=== PATIENT | female | born 1985 | race African-American/Black ===

== ENCOUNTER 2021-05-07 18:12 | Emergency (ER) | payer OTHER, SELFPAY ==
[2021-05-07 18:17] VITALS: BP 128/86; PULSE 102; RESP 12; TEMP 36.2; O2SAT 100
--- NOTE | 2021-05-07 18:31 | ED.FEMALEGU ---
HPI - Female Genitourinary General Chief complaint: Urogenital-Female Stated complaint: UTI Time Seen by Provider: 05/07/21 18:21 History of Present Illness HPI Narrative: 36-year-old female presents emergency room with complaints of dysuria, suprapubic pain, and mild low back pain. Patient denies blood in her urine, or or fever. Patient states symptoms started yesterday. Related Data Allergies Allergy/AdvReac Type Severity Reaction Status Date / Time No Known Allergies Allergy Verified 05/07/21 18:48 Review of Systems Review of Systems: CONSTITUTIONAL: Denies fever, chills, or sweats. EYES: Denies visual changes, redness, or discharge. ENT: Denies rhinorrhea, congestion, sore throat, or otalgia. CARDIOVASCULAR: Denies chest pain, palpitations, or edema. RESPIRATORY: Denies cough or dyspnea. GASTROINTESTINAL: Denies abdominal pain, nausea, vomiting, or diarrhea. GENITOURINARY: Reports dysuria, denies hematuria.. SKIN: Denies rash or itching. MUSCULOSKELETAL: Denies back pain, joint pain, or myalgia. NEUROLOGIC: Denies headache, numbness, dizziness, or weakness. PSYCHIATRIC: Denies anxiety or depression. Exam Narrative: GENERAL: Well-appearing, well-nourished, and in no acute distress. HEAD: Normocephalic, atraumatic. EYES: PERRLA and EOMI. ENT: Nares clear, no rhinorrhea or epistaxis. Mucous membranes moist. NECK: Supple. No adenopathy or masses. No carotid bruits or JVD CHEST: Clear to auscultation. No respiratory distress. No wheezes rales or rhonchi HEART: Regular rate and rhythm. No murmur heard. Normal peripheral pulses. ABDOMEN: Suprapubic tenderness, no CVA tenderness normal active bowel sounds. EXTREMITIES: Normal range of motion. No edema. SKIN: Warm, dry, no rash. NEURO: No focal deficits. Alert and oriented x3. PSYCH: Normal mood and affect. Course Vital Signs Vital signs: Vital Signs Temperature 36.2 C L 05/07/21 18:17 Pulse Rate 102 H 05/07/21 18:17 Respiratory Rate 12 05/07/21 18:17 Blood Pressure 128/86 05/07/21 18:17 Pulse Oximetry 100 05/07/21 18:17 Temperature 36.2 C L 05/07/21 18:17 Pulse Rate 102 H 05/07/21 18:17 Respiratory Rate 12 05/07/21 18:17 Blood Pressure 128/86 05/07/21 18:17 Pulse Oximetry 100 05/07/21 18:17 MDM - Female Genitourinary Lab Data Labs: Lab Results 05/07/21 Range/Units 18:25 Urine Color Yellow (Yellow) Urine Appearance Cloudy H (Clear) Urine pH 7.0 (5.0-9.0) Ur Specific [place] 1.012 (1.001-1.035) Urine Protein 1+ H (Negative) mg/dL Urine Glucose (UA) Negative (Negative) mg/dL Urine Ketones Negative (Negative) mg/dL Ur Blood (Man) 2+ H (Negative) Urine Nitrate Negative (Negative) Urine Bilirubin Negative (Negative) Urine Urobilinogen Negative (<2.0) mg/dL Leukocyte Esterase Rfl 2+ H (Negative) RENE/UL Urine RBC 51-75 H (0-2) /hpf Urine WBC 51-75 H /hpf Ur Squamous Epith Cells Few (Few) /hpf Urine Yeast (Budding) Present H (None) /hpf UCG Bedside Result Negative Reference Range: Negative Urine Characteristics Cloudy Discharge Plan Discharge Clinical Impression: Urinary tract infection Patient Disposition: Home, Self-Care Condition: Stable Instructions: Antibiotic Form, Urinary Tract Infection in Women (ED) Prescriptions: New nitrofurantoin monohyd/m-cryst [Macrobid] 100 mg capsule 100 mg PO Q12H 7 Days Qty: 14 RF: 0 fluconazole 150 mg tablet 150 mg PO WEEKLY Qty: 2 RF: 0 Follow-up/Referrals: Rubio,Richa Leon [employer] [Primary Care Provider] - Time of Disposition: 18:50
[2021-05-07 18:45] LABS: Add Urine Microscopic? YES; Appearance Urine Cloudy (Clear); Bilirubin Urine Negative (Negative); Blood Urine 2+ (Negative); Budding Yeast Urine Present /hpf; Color Urine Yellow (Yellow); Glucose Urine UA Negative (Negative); Ketones Urine Negative (Negative); Leukocyte Esterase Ur 2+ LEU/UL (Negative); Nitrate Urine Negative (Negative); Protein Urine 1+ mg/dL (Negative); RBC Urine 51-75 /hpf (0-2); Specific Grav Ur 1.012 (1.001-1.035); Squamous Epithelial Cell Urine Few /hpf (Few); Urobilinogen Urine Negative mg/dL (<2.0); WBC Urine 51-75 /hpf
== END 2021-05-07 18:57 | disposition home or self-care (01) ==
PROVIDERS: Emergency Medicine; Emergency Provider Nurse Practitioner Family; PCP Nurse Practitioner Family
DX: N39.0 Urinary tract infection, site not specified (principal)
CPT/HCPCS: 81001; 81025; 87077; 87086; 87088; 87186; 99283

== ENCOUNTER 2022-06-01 13:42 | Observation (INO) | payer BC, SELFPAY ==
--- NOTE | ~2022-06-01 | US_ITS ---
US pelvic complete DATE: 06/01/2022 18:18 INDICATION: Suprapubic abdominal pain. Abnormal vaginal bleeding. TECHNIQUE: Real-time and color flow imaging of the pelvis COMPARISON: 06/01/2022 CT abdomen pelvis is not available at this time FINDINGS: The uterus measures 10.3 cm height, 4.5 cm anteroposterior and 5.1 cm transverse dimension. The central endometrial echo complex measures up to 6.4 mm. There is an approximately 3.1 x 3 x 2.8 cm posterior heterogeneous uterine fibroid. Right ovary measures 7.5 x 4.5 x 4.3 cm, with vascular flow. There is a complex right ovarian mass me asuring up to 3.2 x 3.8 x 5.3 cm Left ovary measures 4.8 x 2.5 x 2.6 cm, with normal vascular flow. T here is a left ovarian cyst measuring 1.5 x 2 x 1.5 cm. Small free fluid collection in the posterior cul-de-sac. IMPRESSION: Up to 3.2 x 3.8 by 5.3 cm complex right ovarian lesion Approximately 3 cm posterior uterine fibroid Reviewed, dictated and finalized at [facility]. Reviewed, dictated and finalized at [facility].
--- NOTE | ~2022-06-01 | CT_ITS ---
EXAMINATION: CT abdomen pelvis w con DATE: 06/01/2022 18:49 INDICATION: Right lower quadrant and suprapubic abdominal pain TECHNIQUE: Computed tomography (CT) of the abdomen and pelvis was performed with 100 CC Omnipaque 350 intravenous contrast. Automated exposure control and iterative reconstruction technique were employe d. Exam dose: 298.58 mGy-cm total exam DLP. COMPARISON: None. FINDINGS: The lung bases are clear. Normal heart size. No pericardial or pleural effusion. The liver, gallbladder, bile ducts, spleen, pancreas, pancreatic duct, and adrenal glands and kidneys are unremarkable with the exception of a 7 mm left renal cyst. Normal caliber of the abdominal aorta. No intraperitoneal or retroperitoneal or pelvic mass lesion or adenopathy or ascites. Normal appendix. No bowel obstruction, bowel wall thickening, pneumatosis or intraperitoneal free air . Prominent bilateral ovarian cysts. Mild amount of high attenuation free fluid in the cul-de-sac, possibly blood. Included skeletal structures are unremarkable. IMPRESSION: Normal appendix Prominent bilateral ovarian cysts, mild free fluid, likely blood, in the posterior cul-de-sac Reviewed, dictated and finalized at [facility]. Reviewed, dictated and finalized at [facility]. IMPRESSION: Normal appendix Prominent bilateral ovarian cysts, mild free fluid, likely blood, in the r d internship ior cul-de-sac
[2022-06-01 14:12] VITALS: BP 159/80; PULSE 89; RESP 18; TEMP 36.8; O2SAT 100
[2022-06-01 17:15] VITALS: BP 133/79; PULSE 78; RESP 16; O2SAT 100
--- NOTE | 2022-06-01 17:19 | ED.GENADULT ---
HPI - General Adult General Chief complaint: Unspecified <Katja Wagner PA-C - Last Filed: 06/02/22 02:30> Stated complaint: R. sided abd pain, <Katja Wagner PA-C - Last Filed: 06/02/22 02:30> Time Seen by Provider: 06/01/22 17:03 <Katja Wagner PA-C - Last Filed: 06/02/22 02:30> History of Present Illness HPI narrative: 37-year-old female LMP 05/17 reports for evaluation of suprapubic and right lower quadrant pain for 1 week, worsening today. Patient states for the past week she has had intermittent suprapubic and right lower quadrant pain that radiates to her right low back. Starting today, the pain became constant and worsened. She reports the last day of her LMP was 05/22, then today she began having a bright red light vaginal bleeding, using 1 tampon today. She denies history of spotting between periods. Patient reports she is attempting to conceive, denies concern for STDs. Patient states she had a sensation of urinary urgency. Last bowel movement 4 days ago and normal. Reports nausea today. Denies vomiting, chest pain, shortness of breath, melena, diarrhea, vaginal discharge, cough, congestion, fever, body aches, chills, dysuria, hematuria. <Katja Wagner PA-C - Last Filed: 06/02/22 02:30> Related Data Allergies/adverse reactions: Allergies Allergy/AdvReac Type Severity Reaction Status Date / Time No Known Allergies Allergy Verified 06/05/22 14:07 <Katja Wanger PA-C - Last Filed: 06/02/22 02:30> Review of Systems Review of Systems: CONSTITUTIONAL: Denies fever, chills EYES: Denies visual changes, redness, or discharge. ENT: Denies rhinorrhea, congestion, sore throat, or otalgia. CARDIOVASCULAR: Denies chest pain, palpitations, or edema. RESPIRATORY: Denies cough or dyspnea. GASTROINTESTINAL: See HPI GENITOURINARY: Denies dysuria or hematuria. SKIN: Denies rash or itching. MUSCULOSKELETAL: Denies joint pain, or myalgia. NEUROLOGIC: Denies headache, numbness, dizziness, or weakness. PSYCHIATRIC: Denies anxiety or depression. <Kataj Wagner PA-C - Last Filed: 06/02/22 02:30> [facility] Surgical History Surgical History: Surgical History History of delivery <Katja Wagner PA-C - Last Filed: 06/02/22 02:30> Family History Family History: Family History Mother Hypertension Diabetes mellitus <MARIELA Mejia Last Filed: 06/02/22 02:30> Social History Social History: Social History Smoking status: Never smoker Alcohol intake: never Substance use: never Living arrangements: with family Occupation/Education: student Gender identity (if verbalized by the patient): Female Sexual Orientation (if Verbalized by the Patient): Straight or Heterosexual <Katja Wagner PA-C - Last Filed: 06/02/22 02:30> Exam Narrative: GENERAL: Well-appearing, well-nourished, and in no acute distress. Patient resting comfortably in exam bed. She is pleasant and conversational, becomes tearful during history. HEAD: Normocephalic, atraumatic. EYES: PERRLA and EOMI. ENT: Nares clear, no rhinorrhea or epistaxis. Mucous membranes moist. Oropharynx without tonsillar hypertrophy exudate or other lesions. NECK: Supple. No adenopathy or masses. CHEST: Clear to auscultation. No respiratory distress. No wheezes rales or rhonchi HEART: Regular rate and rhythm. No murmur heard. Normal peripheral pulses. ABDOMEN: Normal active bowel sounds. Nondistended. Generalized abdominal tenderness, more so over suprapubic region and RLQ. Negative Muhammad's, Rovsings, psoas and obturator. Negative heel tap. No CVA tenderness bilaterally. : No lesions or rashes to external genitalia, vagina or cervix. Scant amount of blood in vaginal vault. No CMT. No masses or tenderness appreciated to adnexa
[2022-06-01] MEDS: SODIUM CHLORIDE 0.9% IV 1,000 ML 999 ML IV CONT (17:34)
[2022-06-01] MEDS: ONDANSETRON INJ 4 MG/2 ML VIAL IV PUSH (17:34)
[2022-06-01 17:53] LABS: Basophils Percent Auto 0.5 % (0.2-1.2); Eosinophils Absolute Auto 0.1 K/mm3 (0-0.3); Eosinophils Percent Auto 0.8 % (0-4.4); Hematocrit 36.9 % (37.0-47.0); Hemoglobin 11.7 g/dL (12.0-15.0); Immature Granulocyte Absolute 0.02 K/mm3 (0.00-0.031); Immature Granulocyte Percent A 0.3 % (0-0.5); Immature Platelet Fraction Pct 21.5 % (0.9-11.2); Lymphocytes Absolute Auto 1.21 K/mm3 (0.9-3.2); Lymphocytes Percent Auto 19.5 % (18.3-44.2); Mean Corpuscular HGB Conc 31.7 g/dl (32-36); Mean Corpuscular Hemoglobin 28.4 pg (26-34); Mean Corpuscular Volume 89.6 fl (80-100); Mean Platelet Volume 13.8 fl (7.4-10.4); Monocytes Absolute Auto 0.6 K/mm3 (0.1-0.6); Neutrophils Absolute Auto 4.3 K/mm3 (1.3-6.7); Neutrophils Percent Auto 68.9 % (45.5-73.1); Platelet Count Result 250 k/mm3 (150-375); Red Blood Count 4.12 M/mm3 (4.2-5.4); Red Cell Distribution Width 12.7 % (11.5-14.5); White Blood Count 6.2 K/mm3 (4.5-10.0)
[2022-06-01 17:59] LABS: Lactic Acid Reflex 1.1 mmol/L (0.7-2.0)
[2022-06-01 18:02] LABS: Alanine Aminotransferase 14 U/L (6-35); Albumin Level 4.7 g/dL (3.5-5.1); Alkaline Phosphatase 44 U/L (38-126); Anion Gap 8 mmol/L (8-16); Aspartate Amino Transferase 21 U/L (14-36); Bilirubin,Total 0.5 mg/dL (0.2-1.3); Blood Urea Nitrogen 8 mg/dL (7-17); Calcium 9.4 mg/dL (8.4-10.2); Carbon Dioxide 26 mmol/L (22-30); Chloride 105 mmol/L (98-107); Estimated CRCL calculation 86 ml/min; Estimated Glomerular Filt Rate > 60; Glucose 90 mg/dL (65-110); Lipase 137 U/L (23-300); Potassium 4.6 mmol/L (3.4-5.0); Sodium 139 mmol/L (137-145)
[2022-06-01 18:05] LABS: Ovalocytes 1+ (NORMAL); Platelet Estimate Adequate (Adequate)
[2022-06-01 18:06] LABS: Schistocytes None Seen (NORMAL)
[2022-06-01 18:59] LABS: Appearance Urine Clear (Clear); Bacteria Urine None Seen /hpf; Bilirubin Urine Negative (Negative); Blood Urine 2+ (Negative); Color Urine Yellow (Yellow); Glucose Urine UA Negative (Negative); Ketones Urine Negative (Negative); Leukocyte Esterase Ur Negative LEU/UL (Negative); Nitrate Urine Negative (Negative); Non Pathogenic Casts 0-2; Protein Urine Negative (Negative); RBC Urine 0-2 /hpf (0-2); Specific Grav Ur 1.005 (1.001-1.035); Squamous Epithelial Cell Urine None seen /hpf (Few); Urobilinogen Urine 0.2 mg/dL (<2.0); WBC Urine 0-5 /hpf
[2022-06-01 19:07] LABS: Add Urine Microscopic? YES
[2022-06-01 20:36] LABS: Beta HCG Quantitative 157.66 mIU/ML
[2022-06-01] MEDS: SODIUM CHLORIDE 0.9% IV 1,000 ML 125 ML IV CONT (21:23)
[2022-06-01 22:52] VITALS: BP 126/65; PULSE 74
[2022-06-01 23:09] VITALS: TEMP 37.2
--- NOTE | 2022-06-02 05:31 | OBADM ---
This patient, Zenobia Gomez, admitted to the OB room OB Post 116 for observation. Patient/family oriented to hospital policies and general routines including ID bracelet, bed and alarms, visiting hours, pain management, procedures, bathroom and other care routines, personal items, smoking policy, room service/diet, and visiting hours. Patient/Family are encouraged to report perceived risks to care and to ask questions if they do not understand what they are told or what they should do.
[2022-06-02 05:52] LABS: Beta HCG Quantitative 119.75 mIU/ML
--- NOTE | 2022-06-02 05:55 | PC.NURSE ---
Dr Eden called via marketing copywriter and informed of hcg results, that patient has had no bleeding on her perineal pad and only had bleeding when she sits on the toilet and wipes, and that patient's pain has gone from 8/10 to 3/10 after 1g tylenol IV throughout the night. No further orders for patient received at this time and Dr Eden states he will come in this morning to see patient.
[2022-06-02 06:52] VITALS: BP 103/57; PULSE 82
--- NOTE | 2022-06-02 08:27 | PM.IMHP ---
H&P: HPI History of Present Illness Date/Time: 06/02/22 08:27 Chief Complaint: Right lower quadrant pelvic pain Narrative: 37-year-old female who presented to the emergency room with complaints pelvic/abdominal pain. Patient states she had been having pain symptoms for the past week. Patient states her symptoms worsened acutely and caused her to present to the emergency room. Patient also reports associated vaginal bleeding. Patient states her LMP was 05/22/2022. Patient has been trying to conceive. Patient was incidentally found to be in the emergency room. Beta hCG levels were monitored overnight and noted to trend down. Patient states her bleeding has subsided. Patient had pelvic ultrasound and CT which showed bilateral ovarian cyst. Right ovarian cyst showed internal septations. Endometrial cavity unremarkable. Patient remained hemodynamically stable overnight. Patient states her pain is resolved today. Patient is resting comfortably in the bed. Review of Systems Cardiovascular: Cardiovascular: Denies chest pain, Denies leg edema, Denies palpitations, Denies dyspnea and Denies dyspnea on exertion Respiratory: Respiratory: Denies cough, Denies dyspnea and Denies dyspnea on exertion Gastrointestinal: Gastrointestinal: Denies abdominal pain, Denies constipation, Denies diarrhea, Denies nausea and Denies vomiting Genitourinary: Genitourinary: Denies hematuria, Denies urinary frequency, Denies dysuria, Denies pelvic pain, Denies urinary incontinence and Denies vaginal discharge Neurologic: Reports system reviewed and no additional complaints, except as documented Psychiatric: Psychiatric: Reports no additional psychiatric complaints Endocrine: Endocrine: Denies palpitations PMFSH Surgical History Surgical History History of delivery Family History Family History Mother Hypertension Diabetes mellitus Social History Social History Smoking status: Never smoker Alcohol intake: never Substance use: never Living arrangements: with family Occupation/Education: student Gender identity (if verbalized by the patient): Female Sexual Orientation (if Verbalized by the Patient): Straight or Heterosexual Meds Home Medications and Allergies Home Medications Medication Instructions Recorded Confirmed Type nitrofurantoin 100 mg PO Q12H 7 days #14 caps 05/07/21 Rx monohydrate/macrocrystals 100 mg capsule (Macrobid) fluconazole 150 mg tablet 150 mg PO Q72H #2 tabs 05/24/22 Rx (Diflucan) Allergies Allergy/AdvReac Type Severity Reaction Status Date / Time No Known Allergies Allergy Verified 05/22/22 15:33 Vital Signs Vital Signs - 24 hr 06/01/22 14:12 06/01/22 17:15 06/01/22 22:52 Temperature 98.3 F Pulse Rate 89 78 74 Respiratory Rate 18 16 Blood Pressure 159/80 H 133/79 126/65 Pulse Oximetry 100 100 Oxygen Delivery Room Air 06/02/22 06:52 06/01/22 23:09 Temperature 98.9 F Pulse Rate 82 Respiratory Rate Blood Pressure 103/57 L Pulse Oximetry Oxygen Delivery Exam Const: General: no acute distress Eyes: EOM: EOMs intact bilaterally Neck: Neck: supple Thyroid: thyroid normal Chest: Breast/axilla inspection: normal inspection of the breasts Breast/axilla palpation: normal palpation of the breasts, normal palpation of the axillae and no axillary lymphadenopathy Resp: Effort & Inspection: normal respiratory effort Auscultation: clear to auscultation bilaterally Cardio: Rate: regular rate Rhythm: regular rhythm GI: Inspection: non-distended GI Palp: Yes Soft to palpation, No Tenderness to palpation present (GI) and No Guarding due to palpation present (GI) Auscultation: normal bowel sounds : General: No bladder normal to palpation External Fe
--- NOTE | 2022-06-05 14:02 | PM.OBTRLD ---
OB - Triage/Final Diagnosis Visit Information Date of evaluation: 06/02/22 Reason for evaluation: other ( of unknown location ) Comments/Additional reasons for admission: I have assessed the risk for this patient, Zenobia Gomez, and determined that she would benefit from observation care. Evaluation Laboratory results: Laboratory Tests 06/01/22 06/01/22 06/01/22 17:36 17:36 17:36 WBC 6.2 RBC 4.12 L Hgb 11.7 L Hct 36.9 L MCV 89.6 MCH 28.4 MCHC 31.7 L RDW 12.7 Plt Count 250 MPV 13.8 H Immature Gran % (Auto) 0.3 Neut % (Auto) 68.9 Lymph % (Auto) 19.5 [place] % (Auto) 10.0 H Eos % (Auto) 0.8 Baso % (Auto) 0.5 Lymph # (Auto) 1.21 [place] # (Auto) 0.6 Eos # (Auto) 0.1 Baso # (Auto) 0.0 Abs Immat Gran (auto) 0.02 Absolute Neuts (auto) 4.3 Absolute Nucleated RBC 0.0 Nucleated RBC % 0.0 Platelet Estimate Adequate % Immature Plt Fraction 21.5 H Ovalocytes 1+ Schistocytes None seen Sodium 139 Potassium 4.6 Chloride 105 Carbon Dioxide 26 Anion Gap 8 BUN 8 Creatinine 0.70 Estim Creat Clear Calc 86 Estimated GFR > 60 Glucose 90 Lactic Acid 1.1 Calcium 9.4 Total Bilirubin 0.5 AST 21 ALT 14 Alkaline Phosphatase 44 Total Protein 8.0 Albumin 4.7 Lipase 137 Beta HCG, Quant Urine Color Urine Appearance Urine pH Ur Specific [place] Urine Protein Urine Glucose (UA) Urine Ketones Ur Blood (Man) Urine Nitrate Urine Bilirubin Urine Urobilinogen Leukocyte Esterase Rfl Urine RBC Urine WBC Ur Squamous Epith Cells Urine Bacteria Urine Casts Trichomonas Direct ID 06/01/22 06/01/22 06/01/22 17:36 18:31 19:54 WBC RBC Hgb Hct MCV MCH MCHC RDW Plt Count MPV Immature Gran % (Auto) Neut % (Auto) Lymph % (Auto) [place] % (Auto) Eos % (Auto) Baso % (Auto) Lymph # (Auto) [place] # (Auto) Eos # (Auto) Baso # (Auto) Abs Immat Gran (auto) Absolute Neuts (auto) Absolute Nucleated RBC Nucleated RBC % Platelet Estimate % Immature Plt Fraction Ovalocytes Schistocytes Sodium Potassium Chloride Carbon Dioxide Anion Gap BUN Creatinine Estim Creat Clear Calc Estimated GFR Glucose Lactic Acid Calcium Total Bilirubin AST ALT Alkaline Phosphatase Total Protein Albumin Lipase Beta HCG, Quant 157.66 Urine Color Yellow Urine Appearance Clear Urine pH 7.0 Ur Specific [place] 1.005 Urine Protein Negative Urine Glucose (UA) Negative Urine Ketones Negative Ur Blood (Man) 2+ H Urine Nitrate Negative Urine Bilirubin Negative Urine Urobilinogen 0.2 Leukocyte Esterase Rfl Negative Urine RBC 0-2 Urine WBC 0-5 Ur Squamous Epith Cells None seen Urine Bacteria None seen Urine Casts 0-2 Trichomonas Direct ID Negative 06/02/22 05:22 WBC RBC Hgb Hct MCV MCH MCHC RDW Plt Count MPV Immature Gran % (Auto) Neut % (Auto) Lymph % (Auto) [place] % (Auto) Eos % (Auto) Baso % (Auto) Lymph # (Auto) [place] # (Auto) Eos # (Auto) Baso # (Auto) Abs Immat Gran (auto) Absolute Neuts (auto) Absolute Nucleated RBC Nucleated RBC % Platelet Estimate % Immature Plt Fraction Ovalocytes Schistocytes Sodium Potassium Chloride Carbon Dioxide Anion Gap BUN Creatinine Estim Creat Clear Calc Estimated GFR Glucose Lactic Acid Calcium Total Bilirubin AST ALT Alkaline Phosphatase Total Protein Albumin Lipase Beta HCG, Quant 119.75 Urine Color Urine Appearance Urine pH Ur Specific [place] Urine Protein Urine Glucose (UA) Urine Ketones Ur Blood (Man) Urine Nitrate Urine Bilirubin Urine Urobilinogen Leukocyte Esterase Rfl Urine RBC Urine WBC Ur Squamous Epit
== END 2022-06-02 08:40 | disposition home or self-care (01) ==
LOC: ANHED 20:53 → ANHOBPP 21:28
PROVIDERS: Obstetrics & Gynecology; Admitting Provider Student in an Organized Health Care Education/Training Program; Emergency Provider Physician Assistant; PCP Nurse Practitioner Family; Visit Provider Student in an Organized Health Care Education/Training Program
DX: Z32.01 Encounter for pregnancy test, result positive (principal); O36.80X0 Pregnancy with inconclusive fetal viability, not applicable or unspecified; N93.9 Abnormal uterine and vaginal bleeding, unspecified; N83.291 Other ovarian cyst, right side; D25.9 Leiomyoma of uterus, unspecified; R35.0 Frequency of micturition; R10.31 Right lower quadrant pain; R10.30 Lower abdominal pain, unspecified; D72.829 Elevated white blood cell count, unspecified; Z3A.00 Weeks of gestation of pregnancy not specified
CPT/HCPCS: 36415; 74177; 76856; 80053; 81001; 81025; 83605; 83690; 84702; 85025; 85055; 87070; 87491; 87591; 87808; 96365; 96375; 96376; 99285; G0378; J0131; J2405; J7030; Q9967

== ENCOUNTER 2022-06-05 15:02 | Outpatient (CLI) | payer BC, SELFPAY ==
[2022-06-05 16:57] LABS: Beta HCG Quantitative 232.91 mIU/ML
[2022-06-08 03:43] LABS: FSH <0.7 mIU/mL (***)
[2022-06-10 20:03] LABS: Estradiol, Ultrasensitive 573 pg/mL
== END 2022-06-05 15:03 | disposition home or self-care (01) ==
LOC: ANHLAB 15:03
PROVIDERS: PCP Nurse Practitioner Family; Visit Provider Student in an Organized Health Care Education/Training Program
DX: Z31.89 Encounter for other procreative management (principal); O36.80X0 Pregnancy with inconclusive fetal viability, not applicable or unspecified
CPT/HCPCS: 36415; 82670; 83001; 84443; 84702

== ENCOUNTER 2022-06-07 12:47 | Outpatient (CLI) | payer BC, SELFPAY ==
[2022-06-07 13:39] LABS: Beta HCG Quantitative 205.36 mIU/ML
== END 2022-06-07 12:48 | disposition home or self-care (01) ==
LOC: ANHLAB 12:48
PROVIDERS: PCP Nurse Practitioner Family; Visit Provider Student in an Organized Health Care Education/Training Program
DX: O36.80X0 Pregnancy with inconclusive fetal viability, not applicable or unspecified (principal)
CPT/HCPCS: 36415; 84702

== ENCOUNTER 2022-08-24 10:02 | Outpatient (CLI) | payer BC, SELFPAY ==
--- NOTE | ~2022-08-24 | US_ITS ---
Pelvic ultrasound. Clinical History: First trimester , inconclusive viability Technique: Realtime transabdominal and transvaginal scanning of the pelvis was performed. Color flow Doppler and Doppler spectral analysis were performed. Findings: The uterus is anteverted, and contains an intrauterine gestation. Posterior wall, partially exophytic fibroid measures up to 4 cm in maximum diameter. heart rate is 123 bpm. [place]-rump l ength of 8 mm corresponds to an estimated gestational age of 6 weeks 5 days. Yolk sac also present. The right ovary measures 2.3 x 1.9 x 1.8 cm. No significant right ovarian or adnexal mass is seen. The left ovary measures 2.9 x 4.3 x 3.0 cm. No significant left ovarian or adnexal mass is seen. There is no evidence of free fluid in the cul de sac. Impression: Live intrauterine gestation with estimated gestational age of 6 weeks 5 days. heart rate is 123 bpm. 4 cm posterior uterine fibroid, as detailed above. Reviewed, dictated and finalized at location . Impression: Live intrauterine gestation with estimated gestational age of 6 weeks 5 days. F etal heart rate is 123 bpm. 4 cm posterior uterine fibroid, as detailed above.
== END 2022-08-24 10:03 | disposition home or self-care (01) ==
DX: O36.80X9 Pregnancy with inconclusive fetal viability, other fetus (principal); Z3A.01 Less than 8 weeks gestation of pregnancy; D25.9 Leiomyoma of uterus, unspecified
CPT/HCPCS: 76817